=== PATIENT | male | born 1970 | race African-American/Black ===

== ENCOUNTER 2020-07-13 18:42 | Emergency (ER) | payer MEDICAID ==
[~2020-07-13] VITALS: Ht 172.7 cm; Wt 78.0 kg
[2020-07-13] MEDS ORDERED: ONDANSETRON HCL 4MG/2ML INJ IV STA (19:24)
[2020-07-13] MEDS ORDERED: SODIUM CHLORIDE 0.9% 1,000 ML IV ONE (19:30)
[2020-07-13] MEDS ORDERED: MECLIZINE 25MG TABLET PO ONE (19:30)
[2020-07-13 20:23] LABS: BASOPHILS % 0.3 % (0.0-2.0); EOSINOPHILS % 0.1 % (0.0-5.0); HEMATOCRIT. 44.9 % (42.0-52.0); HEMOGLOBIN. 15.2 g/dL (14.0-18.0); LYMPHOCYTES % 14.1 % (20.0-50.0); MEAN CORPUSCULAR HEMOGLOBIN 28.9 pg (28.0-32.0); MEAN CORPUSCULAR VOLUME 85.2 fL (80.0-94.0); MEAN PLATELET VOLUME 10.6 fl (7.4-10.4); NEUTROPHILS % 81.5 % (40.0-76.0); PLATELET 175 x1000/uL (130-400); RED BLOOD CELL COUNT 5.27 mill/uL (4.7-6.1)
[2020-07-13 20:30] LABS: CHLORIDE 105 mEq/L (98-107)
[2020-07-13] MEDS ORDERED: LEVO750T46 PO (21:41)
[2020-07-13] MEDS ORDERED: DULA1.5P SQ (21:42)
[2020-07-13] MEDS ORDERED: LOSA100T32 PO (21:42)
[2020-07-13] MEDS ORDERED: DILT-26 PO (21:43)
[2020-07-13] MEDS ORDERED: PIOG45TA64 PO (21:43)
[2020-07-13] MEDS ORDERED: METF-416 PO (21:44)
[2020-07-13] MEDS ORDERED: GABA-531 PO (21:44)
[2020-07-13] MEDS ORDERED: GLIP10TA10 PO (21:45)
[2020-07-13] MEDS ORDERED: LOVA20TA2 PO (21:45)
[2020-07-13] MEDS ORDERED: PANT40TA4 PO (21:45)
[2020-07-13] MEDS ORDERED: INSU300I SQ (21:46)
[2020-07-14] MEDS ORDERED: METOCLOPRAMIDE HCL 10MG/2ML VIAL IV ONE (00:30)
[2020-07-14] MEDS ORDERED: DIPHENHYDRAMINE 50MG/ML VIAL IV ONE (00:30)
[2020-07-14 07:34] VITALS: BP 101/61
== END 2020-07-14 07:41 | disposition home or self-care (01) ==
LOC: ER 18:42
DX: R42 Dizziness and giddiness (principal); R51 Headache
CPT/HCPCS: 36415; 70450; 74021; 80053; 83690; 84484; 85025; 93005; 96361; 96374; 96375; 99285; J1200; J2405; J2765; J7030; J8597